=== PATIENT | female | born 1950 | race Caucasian/White ===

== ENCOUNTER 2017-12-09 09:34 | Inpatient (IN) | payer MEDICARE, OTHER ==
[~2017-12-09 09:34] MED LIST: ACETAMINOPHEN 1000 MG/100 ML IVPB; EPHEDrine SULFATE 50 MG/5 ML SYG
[2017-12-09] MEDS: CEFAZOLIN 2 GM/50 ML (PMX) 50 ML IVPB (13:30)
[2017-12-09] MEDS ORDERED: DEXTROSE 5% IV (13:30)
[2017-12-09] MEDS ORDERED: TRANEXAMIC ACID IV (13:30)
[2017-12-09] MEDS: LACTATED RINGER'S 1,000 ML IV* (13:30)
[2017-12-09] MEDS ORDERED: SODIUM CL BACTERIOSTATIC 30 ML INJ (15:08)
[2017-12-09] MEDS ORDERED: PROPOFOL 20 ML (15:19)
[2017-12-09] MEDS ORDERED: morphine SULFATE/PF (10 MG/10 ML) INJ (15:19)
[2017-12-09] MEDS ORDERED: ROPIVACAINE 0.5 % 30 ML VIAL (15:20)
[2017-12-09] MEDS ORDERED: MIDAZOLAM 1 MG/ML 2 ML INJ (15:20)
[2017-12-09] MEDS ORDERED: ONDANSETRON 4 MG INJ (15:20)
[2017-12-09] MEDS ORDERED: METOCLOPRAMIDE 10 MG INJ (15:20)
[2017-12-09] MEDS ORDERED: CEFAZOLIN 1 GM INJ (15:26)
[2017-12-09] MEDS ORDERED: FENTAnyl 50 MCG/ML VIAL (16:03)
[2017-12-09] MEDS: POLYMYXIN/BACITRACIN 1L IRRIG (16:17)
[2017-12-09] MEDS: POLYMYXIN B 500000 UNIT INJ (16:17)
[2017-12-09] MEDS: BACITRACIN 50000 UNITS INJ (16:17)
[2017-12-09] MEDS ORDERED: HYDROmorphONE (0.2 MG/ML) 10ML SYG IV ×3 (17:30)
[2017-12-09] MEDS ORDERED: DIPHENHYDRAMINE 50 MG INJ IV (17:30)
[2017-12-09] MEDS ORDERED: MEPERIDINE 25 MG INJ IV (17:30)
[2017-12-09] MEDS ORDERED: EPHEDrine SULFATE 50 MG/5 ML SYG IV (17:30)
[2017-12-09] MEDS ORDERED: ONDANSETRON 4 MG INJ IV (17:30)
[2017-12-09] MEDS: HIP PAIN COCKTAIL (CEFUROXIME) INJ (18:24)
[2017-12-09] MEDS ORDERED: NACL 0.9% 3 ML SYG IV (18:30)
[2017-12-09] MEDS ORDERED: oxyCODONE 5 MG TAB PO (18:30)
[2017-12-09] MEDS ORDERED: NALOXONE (0.4 MG/ML) INJ IV (18:30)
[2017-12-09] MEDS ORDERED: NA PHOSPHATE/BIPHOS 133 ML ENEMA PR (19:00)
[2017-12-09] MEDS ORDERED: SENNA/DOCUSATE NA (8.6MG/50MG) TAB PO (19:00)
[2017-12-09] MEDS: ONDANSETRON 4 MG INJ IV ×2 (19:00→19:30)
[2017-12-09] MEDS ORDERED: MAGNESIUM HYDROXIDE 30ML CUP PO (19:00)
[2017-12-09] MEDS ORDERED: BISACODYL 10 MG SUPP PR (19:00)
[2017-12-09] MEDS: ASPIRIN (EC) 325 MG TAB PO ×2 (19:30→20:43)
[2017-12-09] MEDS: DOCUSATE SODIUM 100 MG CAP PO (19:30)
[2017-12-09] MEDS: CEFAZOLIN 1 GM/50 ML (PMX) 50 ML IVPB (19:31)
[2017-12-09] MEDS: SOD CHLORIDE 0.9% 1,000 ML IV (19:33)
[2017-12-10] MEDS: ONDANSETRON 4 MG INJ IV ×7 (00:30→12:08)
[2017-12-10] MEDS: CEFAZOLIN 1 GM/50 ML (PMX) 50 ML IVPB ×2 (03:21→11:55)
[2017-12-10 04:03] LABS: ADD UMIC YES; UR ASCORBIC ACID NEGATIVE (NEGATIVE); UR BILIRUBIN (Dip) NEGATIVE (NEGATIVE); UR BLOOD (Dip) 1+ mg/dL (NEGATIVE); UR CLARITY CLEAR (CLEAR); UR COLOR YELLOW (YELLOW); UR GLUCOSE (Dip) NEGATIVE (NEGATIVE); UR KETONES (Dip) NEGATIVE (NEGATIVE); UR LEUKOCYTE ESTERASE (Dip) NEGATIVE Leu/ul (NEGATIVE); UR NITRITE (Dip) NEGATIVE (NEGATIVE); UR RBC 2 /HPF (0-5); UR SPECIFIC GRAVITY (Dip) 1.019 (1.003-1.030); UR TOTAL PROTEIN (Dip) NEGATIVE (NEGATIVE); UR UROBILINOGEN (Dip) NEGATIVE (NEGATIVE); UR WBC 1 /HPF (0-5)
[2017-12-10 05:38] LABS: ADD MAN DIFF? NO
[2017-12-10 05:46] LABS: ABNORMAL IP MESSAGE 1; BASOPHILS % 0.1 % (0.0-2.0); HEMATOCRIT 28.3 % (37.0-47.0); HEMOGLOBIN 9.4 g/dl (12.0-16.0); LYMPHOCYTES # 0.5 10^3/ul (0.8-2.9); LYMPHOCYTES % 5.8 % (15.0-51.0); MEAN CORPUSCULAR HEMOGLOBIN 28.3 pg (29.0-33.0); MEAN CORPUSCULAR HGB CONC 33.2 g/dl (32.0-37.0); MEAN CORPUSCULAR VOLUME 85.2 fl (82.0-101.0); MEAN PLATELET VOLUME 10.2 fl (7.4-10.4); MONOCYTE # 0.4 10^3/ul (0.3-0.9); NEUTROPHIL # 7.1 10^3/ul (1.6-7.5); NEUTROPHILS % 88.7 % (39.0-77.0); PLATELET COUNT 109 10^3/UL (140-415); RED BLOOD COUNT 3.32 10^6/ul (4.20-5.40); RED CELL DISTRIBUTION WIDTH 12.6 % (11.5-14.5)
[2017-12-10] MEDS ORDERED: KETOROLAC 15 MG INJ INJ (06:00)
[2017-12-10] MEDS: PANTOPRAZOLE (EC) 40 MG TAB PO (06:07)
[2017-12-10 06:20] LABS: ANION GAP 13 (8-16); BLOOD UREA NITROGEN 21 mg/dl (7-20); CALCIUM 7.7 mg/dl (8.4-10.2); CARBON DIOXIDE 25 mmol/L (21-31); CHLORIDE 102 mmol/L (97-110); CREATININE 0.73 mg/dl (0.44-1.00); GLUCOSE 167 mg/dl (70-220); POTASSIUM 3.1 mmol/L (3.5-5.1); SODIUM 137 mmol/L (135-144)
[2017-12-10 06:33] LABS: POSITIVE DIFF @See below
[2017-12-10] MEDS: SOD CHLORIDE 0.9% 1,000 ML IV (07:18)
[2017-12-10] MEDS: POTASSIUM CHLORIDE (SR) 20 MEQ TAB PO (07:26)
[2017-12-10] MEDS: [UNRECOGNIZED DRUG - REMARK] XX ×2 (07:30→15:30)
[2017-12-10] MEDS: ASPIRIN (EC) 325 MG TAB PO (08:51)
[2017-12-10] MEDS: DOCUSATE SODIUM 100 MG CAP PO (08:51)
[2017-12-10] MEDS: CELECOXIB 200 MG CAP PO (08:51)
[2017-12-10] MEDS: CHLORTHALIDONE 25 MG TAB PO (08:52)
[2017-12-10] MEDS: HYDROCODONE/APAP (5/325) TAB PO ×2 (08:52→15:03)
[2017-12-10] MEDS: ATENOLOL 100 MG TAB PO (08:53)
[2017-12-10] MEDS ORDERED: NON-FORMULARY/PATIENT OWN MED (Icosapent Ethyl (Vascepa) 2 GM) PO (09:00)
[2017-12-10 10:14] LABS: MAGNESIUM 1.5 mg/dl (1.7-2.5)
[2017-12-10] MEDS: INFLUENZA VIRUS VACCINE 0.5 ML SYG IM* (12:52)
[2017-12-10] MEDS: MAGNESIUM SULFATE 3 GM in DEXTROSE 5% 100 ML IVPB (15:01)
[2017-12-10] MEDS ORDERED: ONDANSETRON 4 MG INJ IV (19:00)
[2017-12-10] MEDS ORDERED: traZODone 50 MG TAB PO (21:00)
== END 2017-12-10 20:30 | disposition home health service (06) | DRG 470 ==
LOC: REC 09:34 → MS1 20:06
PROC: 0SR902A Replacement of Right Hip Joint with Metal on Polyethylene Synthetic Substitute, Uncemented, Open Approach (ICD-10-PCS; principal; 2017-12-09 15:24)
DX: M16.11 Unilateral primary osteoarthritis, right hip (principal); I10 Essential (primary) hypertension; E87.6 Hypokalemia; E78.5 Hyperlipidemia, unspecified; G47.00 Insomnia, unspecified; D64.9 Anemia, unspecified
CPT/HCPCS: 72170; 73500; 73530; 80048; 81001; 83735; 85025; 86850; 86900; 86901; 87081; 87086; 88304; 88311; 90686; 97116; 97163; 97166; 97530